=== PATIENT | female | born 1995 ===

== ENCOUNTER 2021-05-06 22:33 | Emergency (ER) | payer MEDICAID ==
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
[2021-05-06] MEDS ORDERED: Ondansetron 4 MG/2 ML SDV IVPUSH ONE (23:06)
[2021-05-06] MEDS ORDERED: Lactated Ringers 1,000 ML IV SCH (23:15)
--- NOTE | 2021-05-07 07:43 | CT ---
CT cervical spine Technique: Multiple axial sections were obtained from above C1 inferiorly to the lower T2 level. Reconstructed coronal and sagittal images were obtained. Comparison: No prior cervical spine imaging is available. Findings: Vertebral body heights and disc spaces are maintained. Neural foramina and central canal are maintained. No acute fracture or subluxation is seen. Slightly abnormal cervical curvature is seen most likely representing position. Impression: 1. Slightly abnormal cervical curvature is seen most likely representing position. 2. No acute fracture or subluxation is seen. Diagnostic code #2 I agree with preliminary report from [facility], finalized on 05/07/21, 1:34 AM CDT, code 1
--- NOTE | 2021-05-07 07:49 | CT ---
CT chest Technique: Multiple axial sections through the chest were obtained. Intravenous contrast was utilized. Reconstructed coronal and sagittal images were obtained. Comparison: No prior chest imaging is available. Findings: Thoracic aorta shows no aneurysm. Slight soft tissue density is noted within the superior mediastinum compatible with residual thymic tissue. Mediastinum and hilar regions show no adenopathy. No axillary adenopathy is seen. No pericardial thickening is identified. Lungs are clear with no acute parenchymal change. No pleural effusion or pneumothorax is seen. Bone window settings were reviewed which show no acute osseous abnormality. Impression: 1. Nothing acute is seen on CT study of the chest. Diagnostic code #1 I agree with preliminary report from [facility], finalized on 05/07/21, 1:34 AM CDT, code 1 CT abdomen and pelvis Technique: Multiple axial sections were obtained from above the dome of the diaphragm inferiorly through the pubic symphysis. Intravenous contrast was utilized. No oral contrast has been given. Delayed images were obtained through the pelvis. Reconstructed coronal and sagittal images were obtained. Artifact: Mild artifact is seen due to the patient's arms being placed inferiorly. Comparison: No prior CT abdomen or pelvis study is available. Findings: Liver shows no discrete focal abnormality. Gallbladder contains no calcified gallstones. Small amount of splenic tissue is seen. Normal sized spleen is not appreciated. Pancreas shows no discrete abnormality. Adrenal glands show no nodule. Kidneys show symmetric contrast enhancement without hydronephrosis or mass. Aorta shows no aneurysm. No retroperitoneal adenopathy or mesenteric abnormalities are seen. Appendix is seen which is normal. IUD is noted within the uterus which appears to be normal in placement. Minimal free fluid is seen within the pelvis which is most likely physiologic. No free fluid or inflammatory change is seen. Delayed images show contrast within the distal ureters and within the bladder. Bone window settings were reviewed which show no acute osseous abnormality. Impression: 1. Satisfactory position of IUD. 2. Mild artifact from the patient's arms. 3. Nothing acute is otherwise seen on CT study of the abdomen and pelvis. Diagnostic code #1 I agree with preliminary report from [facility], finalized on 05/07/21, 1:37 AM CDT
--- NOTE | 2021-05-07 07:50 | CT ---
Head CT Technique: Multiple axial sections through the brain were obtained. Intravenous contrast was not utilized. Reconstructed coronal and sagittal images were obtained. Comparison: No prior intracranial imaging is available. Findings: Ventricles along with basal cisterns and sulci over the convexities appear within normal limits for the patient's age. No abnormal parenchymal densities are seen. No evidence of intracranial hemorrhage is appreciated. Bone window settings were reviewed. No acute calvarial abnormality is appreciated. Visualized mastoid sinuses and paranasal sinuses show nothing acute. Impression: 1. Nothing acute is seen on noncontrast head CT study. Diagnostic code #1 I agree with preliminary report from [facility], finalized on 05/07/21, 1:33 AM CDT, code 1
--- NOTE | 2021-05-07 07:51 | CT ---
CT maxillofacial Technique: Multiple axial sections were obtained through the maxillofacial structures. Intravenous contrast was not utilized. Reconstructed coronal and sagittal images were obtained. Comparison: No prior maxillofacial bone exam is available. Findings: Visualized mastoid sinuses and paranasal sinuses are clear. Right and left globes are symmetric. No retrobulbar abnormality is appreciated. No facial bone fracture is seen. Several slightly enlarged lymph nodes are seen within the submental region which most likely represents old inflammatory change given the patient's age. Impression: 1. Nothing acute is appreciated on CT study of the maxillofacial structures. Diagnostic code #1 I agree with preliminary report from [facility], finalized on 05/07/21, 1:37 AM CDT, code 1
== END 2021-05-07 01:57 | disposition home or self-care (01) ==
LOC: JD.ED 22:33
DX: S00.83XA Contusion of other part of head, initial encounter (principal); S30.0XXA Contusion of lower back and pelvis, initial encounter; Z88.6 Allergy status to analgesic agent; Y04.0XXA Assault by unarmed brawl or fight, initial encounter
CPT/HCPCS: 36415; 70450; 70486; 71260; 72125; 74177; 80053; 80307; 84703; 85025; 96374; 99284; J2405; J7120